=== PATIENT | female | born 1965 | race African-American/Black ===

== ENCOUNTER → 2017-05-28 | Outpatient (CLI) | payer SELFPAY | LOC: MHCPAIN 11:48 | DX: G89.29 Other chronic pain (principal); M47.812 Spondylosis without myelopathy or radiculopathy, cervical region; M54.12 Radiculopathy, cervical region | CPT/HCPCS: G0463 ==

== ENCOUNTER → 2017-07-30 | Outpatient (CLI) | payer SELFPAY | LOC: MHCPAIN 12:32 | DX: G89.29 Other chronic pain (principal); M54.12 Radiculopathy, cervical region; M96.1 Postlaminectomy syndrome, not elsewhere classified | CPT/HCPCS: G0463 ==

== ENCOUNTER → 2017-08-23 | Outpatient (CLI) | payer SELFPAY | LOC: MHCPAIN 08:39 | DX: M50.123 Cervical disc disorder at C6-C7 level with radiculopathy (principal) | CPT/HCPCS: J1100; Q9967 ==

== ENCOUNTER → 2017-09-11 | Outpatient (CLI) | payer SELFPAY | LOC: MHCPAIN 13:44 | DX: G89.29 Other chronic pain (principal); M50.123 Cervical disc disorder at C6-C7 level with radiculopathy; M96.1 Postlaminectomy syndrome, not elsewhere classified | CPT/HCPCS: G0463 ==

== ENCOUNTER → 2017-12-17 | Outpatient (CLI) | payer SELFPAY | LOC: MHCPAIN 08:44 | DX: G89.29 Other chronic pain (principal); M50.123 Cervical disc disorder at C6-C7 level with radiculopathy; R51 Headache; M96.1 Postlaminectomy syndrome, not elsewhere classified | CPT/HCPCS: G0463 ==